=== PATIENT | male | born 1990 | race Hispanic/Latino ===

== ENCOUNTER 2020-12-18 05:52 | Emergency (ER) | payer SELFPAY ==
[2020-12-18 06:01] VITALS: BP 126/90; PULSE 61; RESP 17; TEMP 36.7; O2SAT 97
--- NOTE | 2020-12-18 06:05 | PC.NURSE ---
Pt presents to ED with complaints of migraine headaches that have been persistent for the past 2 weeks. 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 Per spouse who is at bedside has had x3 small episodes of emesis. Pt currently rates pain 10/10. Pt alert and oriented x4 and in no obvious distress at this time. Call button and personal items within reach. Pt advised to press call button for assistance.
--- NOTE | 2020-12-18 06:07 | PC.NURSE ---
Pt denies photosensitivity.
--- NOTE | 2020-12-18 06:34 | PC.NURSE ---
Lights dimmed and pt provided warm blanket for comfort.
[2020-12-18] MEDS: diphenhydrAMINE HCl INJ 50 MG/ML VIAL 25 MG IV PUSH (07:44)
[2020-12-18] MEDS: METOCLOPRAMIDE HCL INJ 10 MG/2 ML VIAL IV PUSH (07:45)
[2020-12-18] MEDS: KETOROLAC 30 MG/ML VIAL (*BKC) IV PUSH (07:45)
[2020-12-18] MEDS: SODIUM CHLORIDE 0.9% IV 1,000 ML 999 ML IV CONT (07:45)
[2020-12-18 09:01] VITALS: BP 129/83; PULSE 70; RESP 12; O2SAT 99
--- NOTE | 2020-12-18 09:24 | ED.HA ---
HPI - Headache General Chief Complaint: Headache Stated Complaint: Migraine Time Seen by Provider: 12/18/20 06:59 History of Present Illness HPI Narrative: Patient is a 30-year-old male who presents ER with headache. Began last night. Began with visual aura where it looks like he is looking through steam. He then developed right-sided frontal headache. No radiation. No sensitivity to light or sound. Denies nausea/vomiting/shortness of breath. Has history of migraine headaches. This is similar. Not alleviated with ibuprofen. Related Data Allergies Allergy/AdvReac Type Severity Reaction Status Date / Time No Known Allergies Allergy Verified 12/18/20 06:07 Review of Systems Review of Systems: All systems reviewed & are unremarkable except as noted in HPI and below Constitutional: Constitutional: Denies chills, Denies fever(s) and Denies weakness Eyes: Eyes: Reports change in vision and Denies photophobia ENT: Denies nasal congestion and Denies sore throat Neurologic: Denies syncope, Reports headache(s), Denies focal weakness and Denies numbness PMFSH Past Medical History Medical History (Updated 12/18/20 @ 09:26 by Flaco Torres MD) Migraine headache Surgical History Surgical History (Updated 12/18/20 @ 09:25 by Flaco Torres MD) No pertinent past surgical history Social History Social History (Updated 12/18/20 @ 09:25 by Flaco Torres MD) Smoking status: Never smoker Exam Narrative: Exam Narrative: GENERAL: Well-appearing, well-nourished, and in no acute distress. HEAD: Normocephalic, atraumatic. Eyes: PERRL, EOMI. ENT: Mucous membranes moist. CHEST: Clear to auscultation. No respiratory distress. HEART: Regular rate and rhythm. Normal peripheral pulses. EXTREMITIES: Normal range of motion. No edema. NEURO: Alert and oriented x3. PSYCH: Normal mood and affect. Course Course Emergency Course: Symptoms resolved with Toradol/Reglan/Benadryl. Discharge home. Vital Signs Vital signs: Vital Signs Temperature 98.1 F 12/18/20 06:01 Pulse Rate 61 12/18/20 06:01 Respiratory Rate 17 12/18/20 06:01 Blood Pressure 126/90 12/18/20 06:01 Pulse Oximetry 97 12/18/20 06:01 Temperature 98.1 F 12/18/20 06:01 Pulse Rate 61 12/18/20 06:01 Respiratory Rate 17 12/18/20 06:01 Blood Pressure 126/90 12/18/20 06:01 Pulse Oximetry 97 12/18/20 06:01 Discharge Plan Discharge Clinical Impression: Migraine Patient Disposition: Home, Self-Care Condition: Stable Instructions: Migraine Headache (ED) Additional Instructions: Return to ER if you have focal weakness in arm or leg, you cannot speak, you have chest pain or shortness of breath, you have additional concerns. Follow-up/Referrals: Lucas Campbell MD [Physician] - 1 Week PHYSICIAN,DROP SHIPMENT CLERK [Primary Care Provider] -
== END 2020-12-18 09:35 | disposition home or self-care (01) ==
PROVIDERS: Emergency Provider Emergency Medicine
DX: G43.909 Migraine, unspecified, not intractable, without status migrainosus (principal)
CPT/HCPCS: 96361; 96374; 96375; 99284; J1200; J1885; J2765; J7030

== ENCOUNTER 2021-06-25 13:04 | Emergency (ER) | payer SELFPAY ==
[2021-06-25 13:12] VITALS: BP 120/74; PULSE 71; RESP 16; TEMP 36.6
--- NOTE | 2021-06-25 13:23 | ED.MALEGU ---
HPI - Male Genitourinary General Chief complaint: Urogenital-Male Stated complaint: Testicular Pain x1 month Time Seen by Provider: 06/25/21 13:23 Source: patient and RN notes reviewed Mode of arrival: ambulatory Limitations: no limitations History of Present Illness HPI Narrative: 31-year-old male presents the concern for right testicular pain for 1 month. Reports pain is currently a 2/10. Reports pain worsens at nighttime. He denies any swelling, redness, tenderness to the testicle. Denies any urine frequency, pain, penile discharge. He denies any concern for exposure to sexually transmitted disease. He reports this is happened twice before, he has seen urology and had testing done without any significant findings. Both times was given antibiotic with improvement. Patient denies fever, abdominal pain, back pain, body aches. MD Complaint: testicle pain Related Data Allergies Allergy/AdvReac Type Severity Reaction Status Date / Time No Known Allergies Allergy Verified 06/25/21 13:20 Review of Systems Review of Systems: CONSTITUTIONAL: Denies malaise, chills, sweats, or fever. CARDIOVASCULAR: Denies chest pain, palpitations, or edema. RESPIRATORY: Denies cough or dyspnea. GASTROINTESTINAL: Denies abdominal pain, nausea, vomiting GENITOURINARY: Denies dysuria, frequency, urgency, penile discharge. Reports pain at the top of the right testicle SKIN: Denies rash or itching. MUSCULOSKELETAL: Denies back pain or myalgia. All systems reviewed & are unremarkable except as noted in HPI and below PMFSH Past Medical History Medical History (Updated 06/25/21 @ 13:32 by Kacy Coto NP) Migraine headache Surgical History Surgical History (Updated 12/18/20 @ 09:25 by Flaco Torres MD) No pertinent past surgical history Social History Social History (Updated 12/18/20 @ 09:25 by Flaco Torres MD) Smoking status: Never smoker Comments At time of signature, agree with nursing past medical, surgical, social and family history. There is no relevant family history pertinent to the presenting complaint Exam Narrative: GENERAL: Well-appearing, well-nourished, and in no acute distress. HEAD: Normocephalic. EYES: PERRLA, conjunctivae clear. NECK: Supple. No lymphadenopathy CHEST: Clear to auscultation. No respiratory distress. HEART: Regular rate and rhythm. ABDOMEN: Soft, nontender upon palpation, nondistended, normal active bowel sounds, no palpable or pulsatile masses, no guarding. No CVA tenderness SKIN: Warm, dry, no rash. NEURO: Alert and oriented x3. PSYCH: Normal mood and affect : Male General Exam: Yes normal external exam Penis: Yes normal penis Meatus: meatus normal Scrotum: scrotum normal Testes: Testes normal Course Course Emergency Course: Patient is aware of diagnosis, understands and agrees to treatment plan. Anticipatory guidance given. Patient agrees to follow-up as directed and is aware of reasons to seek care at the emergency department. Portions of this record may have been created with voice recognition software Level of Care: Express Care Visit Vital Signs Vital signs: Vital Signs Temperature 98 F 06/25/21 13:12 Pulse Rate 71 06/25/21 13:12 Respiratory Rate 16 06/25/21 13:12 Blood Pressure 120/74 06/25/21 13:12 Temperature 98 F 06/25/21 13:12 Pulse Rate 71 06/25/21 13:12 Respiratory Rate 16 06/25/21 13:12 Blood Pressure 120/74 06/25/21 13:12 Reviewed. MDM - Male Genitourinary MDM Narrative Medical decision making narrative: Exam findings show no acute concerns or changes; patient is non-toxic appearing and is in no distress. Patient is appropriate for outpatient treatment and follow-up. Differential Diagnosis Differential diagnosis: Likely urinary tract infection, priapism, urethritis, epididymitis, genital herpes simplex, acute retention of urine and inguinal hernia Lab Data Labs: Urine Glucose Negative
== END 2021-06-25 13:42 | disposition home or self-care (01) ==
PROVIDERS: Emergency Provider Nurse Practitioner
DX: N45.1 Epididymitis (principal)
CPT/HCPCS: 81003; 99213; G0463